=== PATIENT | female | born 2000 | race Caucasian/White ===

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

== ENCOUNTER 2021-01-02 08:05 | Day surgery (SDC) | payer OTHER ==
[~2021-01-02] VITALS: Ht 165.1 cm; Wt 75.6 kg
--- NOTE | 2021-01-02 14:26 | NUR ---
Patient up to Ambulate independently. Gait steady. Discharge instructions reviewed with patient. Patient verbalizes understanding. Copy given to patient to take home. Discharged via wheelchair to private car for ride home.
== END 2021-01-02 23:17 | disposition home or self-care (01) ==
LOC: ORSCMMR 08:05 → ORD 10:00 → ORSCMMR 10:00
PROVIDERS: Orthopaedic Surgery
PROC: 0PSB04Z Reposition Left Clavicle with Internal Fixation Device, Open Approach (ICD-10-PCS; principal; 2021-01-02 10:00)
DX: S42.012A Anterior displaced fracture of sternal end of left clavicle, initial encounter for closed fracture (principal); G40.909 Epilepsy, unspecified, not intractable, without status epilepticus; Z87.891 Personal history of nicotine dependence
CPT/HCPCS: A9270; C1713; J0171; J0690; J1100; J1885; J2405; J2704; J2710; J3010; J7120

== ENCOUNTER 2024-02-23 09:25 | Day surgery (SDC) | payer OTHER ==
[~2024-02-23] VITALS: Ht 167.6 cm; Wt 81.3 kg
[~2024-02-23 09:25] MED LIST changes: +Lactated Ringer's 1,000 ML IV ONE; +VIENVA
[2024-02-23] MEDS ORDERED: Tranexamic Acid 100 ML IV ONE (09:37)
[2024-02-23] MEDS ORDERED: FentaNYL Citrate 50 MCG/ML 2 ML Injection ONE ×3 (09:38→12:24)
[2024-02-23] MEDS ORDERED: CeFAZolin Sodium 2,000 MG VIAL ONE (09:38)
[2024-02-23] MEDS ORDERED: NS 50 ML IV ONE (09:38)
[2024-02-23] MEDS ORDERED: Midazolam HCl 1MG / ML 2ML Vial ONE (09:38)
[2024-02-23] MEDS ORDERED: EPINEPhrine HCl 1 MG/ML 1ML Amp ONE (09:39)
[2024-02-23] MEDS ORDERED: Bupivacaine 0.5% HCl 5 MG/ML 30MLVIAL ONE (09:39)
[2024-02-23] MEDS ORDERED: Lactated Ringer's 1,000 ML IV ONE (10:11)
[2024-02-23] MEDS ORDERED: propofoL 20 ML IV ONE (10:19)
--- NOTE | 2024-02-23 10:23 | NUR ---
02/23/24 1023 Zander Sun, BLOCK TIMEOUT 1014 BLOCK STARTED 1019 BLOCK [id number]
[2024-02-23] MEDS ORDERED: EPINEPhrine HCl 1 MG/ML 1ML Amp XX ONE (10:52)
[2024-02-23] MEDS ORDERED: Ondansetron HCl 2 MG / ML 2ML Vial ONE (10:52)
[2024-02-23] MEDS ORDERED: Lidocaine 1%-Epineph 1:100000 20 ML MDV INJ ONE (10:52)
[2024-02-23] MEDS ORDERED: Dexamethasone Sod Phos 10 MG/ML 1ML VIAL ONE ×2 (10:52→12:39)
--- NOTE | 2024-02-23 11:01 | NUR ---
02/23/24 1101 Chinyere Bella SINGLE DOSE OF TXA GIVEN IN OR BY ANESTHESIA AT 1040 1MG OF EPI ADDED TO EACH OF THE FIRST THREE BAGS OF LR FOR IRRIGATION AT THE OPSITE. (3MG TOTAL).
[2024-02-23] MEDS ORDERED: Labetalol HCL 5 MG/ML 4ML Injection (Single Dose) ONE (12:06)
[2024-02-23] MEDS ORDERED: HYDROmorphone HCl/Pf 1MG SYR ONE (12:06)
--- NOTE | 2024-02-23 12:34 | NUR ---
02/23/24 1234 Gloria Baeza TRANSFER OF CARE TO RN ALEX AT 1224 AND REPORT GIVEN. SHE WILL MEDICATE FOR C/O 8/10 L SHOULDER AND 6/10 THROAT PAIN PER ANESTHESIA ORDERS.
[2024-02-23] MEDS ORDERED: Ropivacaine 0.5% HCL/PF 5 MG/ML 30ML Vial ONE (12:39)
--- NOTE | 2024-02-23 12:49 | NUR ---
02/23/24 1249 CHA ADAMS PT CRYING. PAIN 12/25. FENTANYL, 2 DOSES GIVEN, 25MCG GIVEN EACH, TOTAL 50MCG. DR KHAN IN TO DO A 2ND BLOCK UNABLE TO DO BLOCK IN OR. PT HAS AGREED TO DO ANOTHER BLOCK. PT CONCERNED ABOUT HER ARM BEING IN A SLING. SHE SAID THAT SHE WAS TOLD BY DOCTOR THAT HER ARM WAS SUPPOSED TO BE STRAIGHT AND THAT IT SHOULDN'T CROSS HER BODY.
[2024-02-23] MEDS ORDERED: OxyCODONE HCL 5 MG TAB ONE (13:24)
[2024-02-23 13:32] VITALS: BP 120/85
== END 2024-02-23 14:15 | disposition home or self-care (01) ==
LOC: ORSCSDS 09:25
PROVIDERS: Orthopaedic Surgery Sports Medicine
PROC: 0RQK4ZZ Repair Left Shoulder Joint, Percutaneous Endoscopic Approach (ICD-10-PCS; principal; 2024-02-23 10:45)
DX: S43.432A Superior glenoid labrum lesion of left shoulder, initial encounter (principal); Z87.891 Personal history of nicotine dependence
CPT/HCPCS: A9270; C1713; J0171; J0690; J1100; J1170; J2250; J2405; J2704; J2795; J3010; J7120

== ENCOUNTER → 2024-07-21 | Outpatient (CLI) | payer OTHER ==
[~2024-07-21] MED LIST changes: -Lactated Ringer's 1,000 ML IV ONE
[2024-07-21 13:14] LABS: Source, Urine Clean Catch
[2024-07-21 15:35] LABS: Red Blood Cells, Urine 0-2 /hpf (0-2); White Blood Cells, Urine 0-2 /hpf (0-5)
[2024-07-21 15:36] LABS: Bacteria Few /hpf; Squamous Epithelial Cells Rare /hpf (Few)
[2024-07-21 15:56] LABS: U Amphetamine Screen Not Detected; U Barbituate Screen Not Detected; U Benzodiazapine Screen Not Detected; U Buprenorphine Screen Not Detected; U Cannabinoids Screen DETECTED; U Cocaine Screen Not Detected; U Methadone Screen Not Detected; U Methamphetamine Screen Not Detected; U Opiates Screen Not Detected; U Oxycodone Screen Not Detected; U Phencyclidine Screen Not Detected
== END ==
LOC: LAB 13:09 → LAB SHORT 13:09
PROVIDERS: Family Medicine
DX: Z34.01 Encounter for supervision of normal first pregnancy, first trimester (principal)
CPT/HCPCS: 81015; 87086

== ENCOUNTER 2024-09-30 18:15 | Inpatient (IN) | payer OTHER ==
[~2024-09-30] VITALS: Ht 170.2 cm; Wt 106.8 kg
[2024-10-02 11:41] VITALS: BP 140/96
== END 2024-10-02 11:55 | disposition home or self-care (01) | DRG 787 ==
LOC: ER 18:15 → ERHOLD 19:41 → BC 19:41 → ER 19:41 → BC 21:29
PROVIDERS: ADMIT Obstetrics & Gynecology
PROC: 10D00Z1 Extraction of Products of Conception, Low, Open Approach (ICD-10-PCS; principal; 2024-09-30)
PROC: 4A1HXCZ Monitoring of Products of Conception, Cardiac Rate, External Approach (ICD-10-PCS; 2024-09-30)
DX: O15.1 Eclampsia complicating labor (principal); O99.324 Drug use complicating childbirth; Z3A.29 29 weeks gestation of pregnancy; Z37.0 Single live birth; F15.90 Other stimulant use, unspecified, uncomplicated; F12.90 Cannabis use, unspecified, uncomplicated; O76 Abnormality in fetal heart rate and rhythm complicating labor and delivery